=== PATIENT | female | born 1965 ===

== ENCOUNTER 2019-03-12 13:12 | Emergency (ER) | payer OTHER ==
[~2019-03-12] VITALS: Ht 165.1 cm; Wt 74.8 kg
[2019-03-12] MEDS ORDERED: MICARDIS HCT 81 EACH PO (13:45)
[2019-03-12] MEDS ORDERED: SYNTHROID125 MCG PO (13:46)
[2019-03-12] MEDS ORDERED: CIPRO500 MG PO (17:06)
== END 2019-03-12 17:09 | disposition home or self-care (01) ==
LOC: ER 13:12
DX: N39.0 Urinary tract infection, site not specified (principal); M54.5 Low back pain